=== PATIENT | male | born 1970 | race Caucasian/White ===

== ENCOUNTER 2021-06-09 23:36 | Observation (INO) ==
[2021-06-10] MEDS ORDERED: ceFAZolin 2,000 MG in 0.9 % Sodium Chloride 100 ML IVPB ONE (00:25)
[2021-06-10] MEDS ORDERED: Tdap (Boostrix) Vaccine 0.5 ML SYRINGE IM ONE (00:34)
[2021-06-10] MEDS ORDERED: ceFAZolin 3,000 MG in 0.9 % Sodium Chloride 100 ML IVPB ONE (00:41)
[2021-06-10 02:01] LABS: Basophils # 0.1 K/mcL (0.0-0.2); Basophils % 0.3 %; Hematocrit 42.3 % (37.5-50.1); Hemoglobin 14.6 g/dL (12.9-16.9); Immature Granulocytes % 0.5 % (0-4); Lymphocytes # 1.1 K/mcL (0.6-4.6); Lymphocytes % 7.3 %; Mean Corpuscular HGB Conc 34.5 g/dL (31.6-35.5); Mean Corpuscular Hemoglobin 32.4 pg (28.0-33.3); Mean Corpuscular Volume 93.8 fL (83.0-100.0); Mean Platelet Volume 11.2 fL (9.4-12.4); Monocytes # 1.2 K/mcL (0.0-1.3); Neutrophils # 12.3 K/mcL (1.6-8.9); Platelet Count 226 K/mcL (140-400); Red Blood Count 4.51 M/mcL (4.19-5.50); Red Cell Distribution Width 13.2 % (11.5-14.5); Segmented Neutrophils % 83.9 %; White Blood Count 14.7 K/mcL (4.3-11.1)
[2021-06-10] MEDS ORDERED: Ketorolac 30 MG/ML VIAL IVP ONE (02:08)
[2021-06-10 02:16] LABS: INR 1.1; Prothrombin Time 12.5 Seconds (9.4-12.1)
[2021-06-10 02:20] LABS: BUN/Creatinine Ratio 18 (6-26); Blood Urea Nitrogen 19 mg/dL (6-20); Calcium 9.3 mg/dL (8.6-10.3); Carbon Dioxide 24 mEq/L (23-29); Chloride 102 mEq/L (98-107); Glucose 98 mg/dL (70-105); Osmolality,Calculated 282 (280-300); Potassium 3.9 mEq/L (3.5-5.1); Sodium 135 mEq/L (136-145); eGFR For African Americans > 60 (> 60); eGFR For Non-African Americans > 60 (> 60)
[2021-06-10 02:32] LABS: Influenza A PCR Negative (Negative); Influenza B PCR Negative (Negative); Resp. Syncytial Virus PCR Negative (Negative)
[2021-06-10 02:35] LABS: SARS-CoV-2 by PCR (In House) Negative (Negative)
[2021-06-10] MEDS ORDERED: Acetaminophen 325 MG TABLET PO PRN ×2 (02:45→21:01)
[2021-06-10] MEDS ORDERED: Ondansetron 4 MG/2 ML VIAL IVP PRN ×2 (02:45→21:01)
[2021-06-10] MEDS ORDERED: Naloxone 0.4 MG/ML INJ IVP PRN ×2 (02:45→21:01)
[2021-06-10] MEDS ORDERED: Morphine Sulfate 2 MG/ML SYRINGE IVP ONE (02:53)
[2021-06-10] MEDS ORDERED: Ketorolac 30 MG/ML VIAL IVP PRN (02:53)
[2021-06-10] MEDS ORDERED: Ipratropium/Albuterol Neb 3 ML IH PRN ×2 (03:01→21:01)
[2021-06-10] MEDS: Ringers Solution, Lactated 1,000 ML IVC SCH (03:32)
[2021-06-10 03:58] LABS: Bacteria,Urine Few per hpf (None-Few); Bilirubin,Urine Negative (Negative); Blood,Urine Negative (Negative); Clarity,Urine Clear (Clear); Color,Urine Light-Yellow (Yellow); Glucose,Urine (UA) Normal (Normal); Ketones,Urine 40 mg/dL (Negative); Leukocyte Esterase,Urine Trace (Negative); Mucus,Urine Few per lpf (None-Few); Nitrite,Urine Negative (Negative); PH,Urine 5.5 pH Units (5.0-8.0); Protein,Urine Negative (Neg-Trace); RBC,Urine 0-3 per hpf (0-3); Specific Gravity,Urine 1.016 (1.010-1.025); Squamous Epithelial Cell,Urine Few per hpf (None-Few); Urobilinogen,Urine Normal (Normal)
[2021-06-10 03:59] LABS: Thyroid Stimulating Hormone 1.712 mcIU/mL (0.340-5.600)
[2021-06-10 04:09] LABS: Amphetamine Screen,Urine Negative ng/mL (Cutoff=1000); Barbiturate Screen,Urine Negative ng/mL (Cutoff=200); Benzodiazepines Screen,Urine Negative ng/mL (Cutoff=200); Cannabinoid Screen,Urine Positive ng/mL (Cutoff = 50); Cocaine Screen,Urine Negative ng/mL (Cutoff= 300); Opiate Screen,Urine Positive ng/mL (Cutoff=300); Phencyclidine Screen,Urine Negative ng/mL (Cutoff=25)
[2021-06-10] MEDS: *HR* OxyCODONE Immed Rel 5 MG TABLET PO PRN ×3 (06:10→21:25)
[2021-06-10] MEDS ORDERED: *HR* Enoxaparin 30 MG/0.3 ML SYRINGE SQ SCH (09:00)
[2021-06-10] MEDS ORDERED: Nicotine 14 MG PATCH.TD24 TD SCH ×2 (09:00→21:15)
[2021-06-10] MEDS: Ampicillin/Sulbactam 1,500 MG in 0.9 % Sodium Chloride Mini Bag 100 ML IVPB SCH ×2 (14:14→19:00)
[2021-06-10] MEDS ORDERED: *HR* OxyCODONE Immed Rel 5 MG TABLET PO ONE (18:04)
[2021-06-10] MEDS ORDERED: *HR* Midazolam HCl 2 MG/2 ML VIAL ONE (18:35)
[2021-06-10] MEDS ORDERED: *HR* FentaNYL (PF) 100 MCG/2 ML VIAL ONE ×2 (18:35→19:08)
[2021-06-10] MEDS ORDERED: *HR* Propofol 200 MG/20 ML VIAL IVP ONE (18:35)
[2021-06-10] MEDS ORDERED: Lidocaine -MPF 2% 5 ML VIAL ONE (18:35)
[2021-06-10] MEDS ORDERED: Ondansetron 4 MG/2 ML VIAL ONE (18:35)
[2021-06-10] MEDS: *HR* FentaNYL (PF) 100 MCG/2 ML VIAL IVP PRN ×2 (19:45→19:56)
[2021-06-10] MEDS ORDERED: *HR* FentaNYL (PF) 100 MCG/2 ML VIAL IVP PRN (21:01)
[2021-06-10] MEDS ORDERED: Ringers Solution, Lactated 1,000 ML IVC SCH (21:01)
[2021-06-11] MEDS: Ketorolac 30 MG/ML VIAL IVP PRN ×2 (00:04→09:30)
[2021-06-11] MEDS: Ampicillin/Sulbactam 1,500 MG in 0.9 % Sodium Chloride Mini Bag 100 ML IVPB SCH ×2 (00:04→06:09)
[2021-06-11] MEDS ORDERED: *HR* HYDROmorphone (PF) 1 MG/ML SYRINGE IVP ONE (01:01)
[2021-06-11 03:17] LABS: Basophils % 0.2 %; Hematocrit 40.1 % (37.5-50.1); Hemoglobin 13.6 g/dL (12.9-16.9); Immature Granulocytes % 0.6 % (0-4); Lymphocytes # 0.4 K/mcL (0.6-4.6); Lymphocytes % 4.7 %; Mean Corpuscular HGB Conc 33.9 g/dL (31.6-35.5); Mean Corpuscular Hemoglobin 31.8 pg (28.0-33.3); Mean Corpuscular Volume 93.7 fL (83.0-100.0); Mean Platelet Volume 11.6 fL (9.4-12.4); Monocytes # 0.4 K/mcL (0.0-1.3); Monocytes % 3.8 %; Neutrophils # 8.6 K/mcL (1.6-8.9); Platelet Count 193 K/mcL (140-400); Red Blood Count 4.28 M/mcL (4.19-5.50); Red Cell Distribution Width 12.9 % (11.5-14.5); Segmented Neutrophils % 90.7 %; White Blood Count 9.4 K/mcL (4.3-11.1)
[2021-06-11 04:11] LABS: BUN/Creatinine Ratio 19 (6-26); Blood Urea Nitrogen 18 mg/dL (6-20); Calcium 8.6 mg/dL (8.6-10.3); Carbon Dioxide 25 mEq/L (23-29); Chloride 106 mEq/L (98-107); Glucose 131 mg/dL (70-105); Osmolality,Calculated 284 (280-300); Potassium 5.2 mEq/L (3.5-5.1); Sodium 135 mEq/L (136-145); eGFR For African Americans > 60 (> 60); eGFR For Non-African Americans > 60 (> 60)
[2021-06-11] MEDS ORDERED: *HR* Enoxaparin 40 MG/0.4 ML SYRINGE SQ SCH ×2 (06:00)
[2021-06-11] MEDS: *HR* OxyCODONE Immed Rel 5 MG TABLET PO PRN ×2 (06:09→12:11)
[2021-06-11 07:44] VITALS: BP 129/77; PULSE 68; TEMP 97.9
[2021-06-11 07:45] VITALS: O2SAT 95
[2021-06-11] MEDS: Ringers Solution, Lactated 1,000 ML IVC SCH (08:02)
[2021-06-11 08:08] LABS: BUN/Creatinine Ratio 25 (6-26); Blood Urea Nitrogen 23 mg/dL (6-20); Calcium 8.7 mg/dL (8.6-10.3); Carbon Dioxide 25 mEq/L (23-29); Chloride 106 mEq/L (98-107); Glucose 232 mg/dL (70-105); Osmolality,Calculated 289 (280-300); Potassium 4.7 mEq/L (3.5-5.1); Sodium 134 mEq/L (136-145); eGFR For African Americans > 60 (> 60); eGFR For Non-African Americans > 60 (> 60)
== END 2021-06-11 12:57 | disposition home or self-care (01) ==
LOC: 4WAOSI 23:36 → EMEROOARM 23:36 → SUATTDRO 06-10 02:35 → 4WAOSI 06-10 03:03
PROVIDERS: ADMIT Student in an Organized Health Care Education/Training Program; ATTEND Pharmacist